=== PATIENT | male | born 1970 | race Caucasian/White ===

== ENCOUNTER 2019-10-24 08:27 | Inpatient (IN) ==
[2019-10-24] MEDS ORDERED: *HR* FentaNYL (PF) 100 MCG/2 ML VIAL ONE ×2 (08:49→11:33)
[2019-10-24] MEDS ORDERED: *HR* Midazolam HCl 2 MG/2 ML VIAL ONE (08:49)
[2019-10-24] MEDS ORDERED: *HR* Propofol 200 MG/20 ML VIAL IVP ONE (08:50)
[2019-10-24] MEDS ORDERED: Dexamethasone 4 MG/ML VIAL ONE (08:50)
[2019-10-24] MEDS ORDERED: Ondansetron 4 MG/2 ML VIAL ONE (08:50)
[2019-10-24] MEDS ORDERED: Lidocaine HCL 4 ML Topical Solution (Laryng-O-Jet Kit Sterile Pak) TP ONE (08:50)
[2019-10-24] MEDS ORDERED: Lidocaine -MPF 2% 2 ML VIAL ONE (08:50)
[2019-10-24] MEDS ORDERED: *HR* Rocuronium Bromide 50 MG/5 ML VIAL ONE (08:50)
[2019-10-24] MEDS ORDERED: CeFAZolin Syr 2,000MG/20 ML 2,000 MG/20 ML SYRINGE IVPB ONE (08:59)
[2019-10-24] MEDS ORDERED: Ringers Solution, Lactated 1,000 ML IVC SCH (09:00)
[2019-10-24] MEDS ORDERED: *HR* OxyCODONE Immed Rel 5 MG TABLET PO PRN (09:10)
[2019-10-24] MEDS ORDERED: Ketorolac 30 MG/ML VIAL IVP ONE (09:10)
[2019-10-24] MEDS ORDERED: Ondansetron 4 MG/2 ML VIAL IVP ONE (09:10)
[2019-10-24] MEDS ORDERED: Acetaminophen IV 1,000 MG/100 ML INFUS..BTL ONE (09:59)
[2019-10-24] MEDS ORDERED: Ketorolac 30 MG/ML VIAL ONE (12:30)
[2019-10-24] MEDS: *HR* HYDROmorphone PF 0.5 MG/0.5 ML SYRINGE IVP PRN ×4 (13:09→13:41)
[2019-10-24] MEDS ORDERED: Naloxone 0.4 MG/ML INJ IVP PRN (14:38)
[2019-10-24] MEDS: Gabapentin 300 MG CAPSULE PO SCH ×2 (15:22→20:38)
[2019-10-24] MEDS: *HR* HYDROcodone/Acet 5/325 mg TABLET PO PRN ×2 (15:22→20:38)
[2019-10-24] MEDS: *HR* Heparin 5,000 UNIT/ML VIAL SQ SCH ×2 (15:22→20:40)
[2019-10-24] MEDS: 0.9 % Sodium Chloride 1,000 ML IVC SCH (15:23)
[2019-10-24] MEDS: Ipratropium/Albuterol Neb 3 ML IH SCH ×3 (15:42→23:43)
[2019-10-24] MEDS: Ketorolac 15 MG/ML VIAL IVP SCH (17:30)
[2019-10-24] MEDS: Sennosides/Docusate Sodium TABLET PO SCH (20:39)
[2019-10-24] MEDS: Famotidine 20 MG TABLET PO SCH (20:39)
[2019-10-24] MEDS: *HR* LORazepam 2 MG/ML VIAL IVP PRN (22:07)
[2019-10-24] MEDS: *HR* OxyCODONE/APAP 7.5/325 TABLET PO PRN (22:08)
[2019-10-25] MEDS: Ketorolac 15 MG/ML VIAL IVP SCH ×4 (00:59→18:01)
[2019-10-25] MEDS: Ipratropium/Albuterol Neb 3 ML IH SCH ×6 (03:18→23:51)
[2019-10-25] MEDS: 0.9 % Sodium Chloride 1,000 ML IVC SCH (03:49)
[2019-10-25] MEDS: *HR* Heparin 5,000 UNIT/ML VIAL SQ SCH ×3 (05:59→21:23)
[2019-10-25] MEDS: *HR* LORazepam 2 MG/ML VIAL IVP PRN ×3 (06:21→21:23)
[2019-10-25] MEDS: *HR* OxyCODONE/APAP 7.5/325 TABLET PO PRN ×3 (06:22→18:00)
[2019-10-25 07:06] LABS: Hematocrit 42.8 % (37.5-50.1); Hemoglobin 14.5 g/dL (12.9-16.9); Mean Corpuscular HGB Conc 33.9 g/dL (31.6-35.5); Mean Corpuscular Hemoglobin 31.2 pg (28.0-33.3); Mean Platelet Volume 9.6 fL (9.4-12.4); Platelet Count 241 K/mcL (140-400); Red Blood Count 4.65 M/mcL (4.19-5.50); Red Cell Distribution Width 14.3 % (11.5-14.5); White Blood Count 11.6 K/mcL (4.3-11.1)
[2019-10-25 07:24] LABS: % Iron Saturation 7 % (20-55); BUN/Creatinine Ratio 18 (6-26); Blood Urea Nitrogen 18 mg/dL (6-20); Calcium 8.3 mg/dL (8.6-10.3); Carbon Dioxide 22 mEq/L (23-29); Chloride 104 mEq/L (98-107); Glucose 138 mg/dL (70-105); Iron 24 mcg/dL (65-175); Osmolality,Calculated 276 (280-300); Potassium 3.9 mEq/L (3.5-5.1); Sodium 131 mEq/L (136-145); Transferrin 255 mg/dL (203-362); eGFR For African Americans > 60 (> 60); eGFR For Non-African Americans > 60 (> 60)
[2019-10-25] MEDS: Sennosides/Docusate Sodium TABLET PO SCH ×2 (08:08→19:38)
[2019-10-25] MEDS: Famotidine 20 MG TABLET PO SCH ×2 (08:08→19:38)
[2019-10-25] MEDS: Gabapentin 300 MG CAPSULE PO SCH ×3 (08:08→19:38)
[2019-10-25] MEDS ORDERED: Iron Sucrose Complex 400 MG in 0.9 % Sodium Chloride 250 ML IVPB ONE (09:24)
[2019-10-26] MEDS: Ketorolac 15 MG/ML VIAL IVP SCH ×5 (01:57→23:44)
[2019-10-26] MEDS: *HR* OxyCODONE/APAP 7.5/325 TABLET PO PRN ×2 (02:03→20:17)
[2019-10-26] MEDS: Ipratropium/Albuterol Neb 3 ML IH SCH ×6 (03:38→23:48)
[2019-10-26] MEDS: *HR* Heparin 5,000 UNIT/ML VIAL SQ SCH ×3 (06:05→20:17)
[2019-10-26] MEDS: *HR* LORazepam 2 MG/ML VIAL IVP PRN ×2 (06:08→12:19)
[2019-10-26] MEDS: Gabapentin 300 MG CAPSULE PO SCH ×3 (08:06→20:17)
[2019-10-26] MEDS: Sennosides/Docusate Sodium TABLET PO SCH ×2 (08:06→20:10)
[2019-10-26] MEDS: Famotidine 20 MG TABLET PO SCH ×2 (08:06→20:18)
[2019-10-27] MEDS: Ipratropium/Albuterol Neb 3 ML IH SCH ×6 (03:32→21:17)
[2019-10-27] MEDS: Ketorolac 15 MG/ML VIAL IVP SCH ×4 (05:00→23:07)
[2019-10-27] MEDS: *HR* Heparin 5,000 UNIT/ML VIAL SQ SCH (05:01)
[2019-10-27] MEDS: Gabapentin 300 MG CAPSULE PO SCH ×3 (07:58→19:46)
[2019-10-27] MEDS: Sennosides/Docusate Sodium TABLET PO SCH ×2 (07:58→19:46)
[2019-10-27] MEDS: Famotidine 20 MG TABLET PO SCH ×2 (07:58→19:45)
[2019-10-27] MEDS: *HR* OxyCODONE/APAP 7.5/325 TABLET PO PRN ×4 (09:17→23:48)
[2019-10-27] MEDS ORDERED: Gabapentin 300 MG CAPSULE PO SCH (09:30)
[2019-10-27 09:50] LABS: Hematocrit 37.2 % (37.5-50.1); Mean Corpuscular HGB Conc 34.9 g/dL (31.6-35.5); Mean Corpuscular Hemoglobin 32.2 pg (28.0-33.3); Mean Corpuscular Volume 92.1 fL (83.0-100.0); Mean Platelet Volume 9.4 fL (9.4-12.4); Platelet Count 208 K/mcL (140-400); Red Blood Count 4.04 M/mcL (4.19-5.50); Red Cell Distribution Width 14.1 % (11.5-14.5); White Blood Count 7.2 K/mcL (4.3-11.1)
[2019-10-27 10:11] LABS: % Iron Saturation 14 % (20-55); BUN/Creatinine Ratio 15 (6-26); Blood Urea Nitrogen 14 mg/dL (6-20); Calcium 8.4 mg/dL (8.6-10.3); Carbon Dioxide 23 mEq/L (23-29); Chloride 104 mEq/L (98-107); Glucose 180 mg/dL (70-105); Iron 43 mcg/dL (65-175); Magnesium 1.9 mg/dL (1.6-2.6); Osmolality,Calculated 283 (280-300); Sodium 134 mEq/L (136-145); Transferrin 212 mg/dL (203-362); eGFR For African Americans > 60 (> 60); eGFR For Non-African Americans > 60 (> 60)
[2019-10-28] MEDS: *HR* OxyCODONE/APAP 7.5/325 TABLET PO PRN ×4 (03:47→20:25)
[2019-10-28] MEDS: *HR* LORazepam 2 MG/ML VIAL IVP PRN ×2 (03:49→23:14)
[2019-10-28] MEDS: Ipratropium/Albuterol Neb 3 ML IH SCH ×4 (04:00→22:19)
[2019-10-28] MEDS: Ketorolac 15 MG/ML VIAL IVP SCH ×4 (06:24→23:14)
[2019-10-28] MEDS: Gabapentin 300 MG CAPSULE PO SCH ×3 (07:57→20:25)
[2019-10-28] MEDS: Sennosides/Docusate Sodium TABLET PO SCH ×2 (07:58→20:25)
[2019-10-28] MEDS: Famotidine 20 MG TABLET PO SCH ×2 (07:58→20:25)
[2019-10-29] MEDS: *HR* OxyCODONE/APAP 7.5/325 TABLET PO PRN ×5 (00:37→20:26)
[2019-10-29] MEDS: Ipratropium/Albuterol Neb 3 ML IH SCH ×4 (03:45→22:32)
[2019-10-29] MEDS: Ketorolac 15 MG/ML VIAL IVP SCH ×3 (04:43→17:22)
[2019-10-29] MEDS: Famotidine 20 MG TABLET PO SCH ×2 (07:19→20:27)
[2019-10-29] MEDS: Sennosides/Docusate Sodium TABLET PO SCH ×2 (07:19→20:26)
[2019-10-29] MEDS: Gabapentin 300 MG CAPSULE PO SCH ×3 (07:19→20:26)
[2019-10-29] MEDS: *HR* LORazepam 2 MG/ML VIAL IVP PRN (22:07)
[2019-10-30] MEDS: Ipratropium/Albuterol Neb 3 ML IH SCH ×4 (04:25→21:29)
[2019-10-30] MEDS: *HR* OxyCODONE/APAP 7.5/325 TABLET PO PRN ×2 (04:41→08:40)
[2019-10-30] MEDS: Famotidine 20 MG TABLET PO SCH ×2 (07:55→20:03)
[2019-10-30] MEDS: Gabapentin 300 MG CAPSULE PO SCH (07:55)
[2019-10-30] MEDS: Sennosides/Docusate Sodium TABLET PO SCH ×2 (07:56→20:03)
[2019-10-30] MEDS: *HR* OxyCODONE/APAP 10/325 TABLET PO PRN ×2 (13:21→20:03)
[2019-10-30] MEDS: Gabapentin 400 MG CAPSULE PO SCH ×2 (14:51→20:03)
[2019-10-31] MEDS: *HR* LORazepam 2 MG/ML VIAL IVP PRN (00:06)
[2019-10-31] MEDS: *HR* OxyCODONE/APAP 10/325 TABLET PO PRN ×3 (00:06→09:20)
[2019-10-31] MEDS: Ipratropium/Albuterol Neb 3 ML IH SCH ×2 (03:06→09:53)
[2019-10-31 06:26] LABS: Hematocrit 38.3 % (37.5-50.1); Hemoglobin 12.9 g/dL (12.9-16.9); Mean Corpuscular HGB Conc 33.7 g/dL (31.6-35.5); Mean Corpuscular Hemoglobin 31.1 pg (28.0-33.3); Mean Corpuscular Volume 92.3 fL (83.0-100.0); Mean Platelet Volume 9.2 fL (9.4-12.4); Platelet Count 256 K/mcL (140-400); Red Blood Count 4.15 M/mcL (4.19-5.50); Red Cell Distribution Width 14.1 % (11.5-14.5); White Blood Count 6.6 K/mcL (4.3-11.1)
[2019-10-31 06:48] LABS: BUN/Creatinine Ratio 22 (6-26); Blood Urea Nitrogen 22 mg/dL (6-20); Calcium 8.4 mg/dL (8.6-10.3); Carbon Dioxide 23 mEq/L (23-29); Chloride 103 mEq/L (98-107); Glucose 105 mg/dL (70-105); Magnesium 2.2 mg/dL (1.6-2.6); Osmolality,Calculated 276 (280-300); Sodium 131 mEq/L (136-145); eGFR For African Americans > 60 (> 60); eGFR For Non-African Americans > 60 (> 60)
[2019-10-31] MEDS: Gabapentin 400 MG CAPSULE PO SCH (07:23)
[2019-10-31] MEDS: Famotidine 20 MG TABLET PO SCH (07:23)
[2019-10-31] MEDS: Sennosides/Docusate Sodium TABLET PO SCH (07:23)
[2019-10-31 10:54] VITALS: BP 150/82
== END 2019-10-31 10:38 | disposition home or self-care (01) | DRG 165 ==
LOC: SAMDAY 08:27 → 3NENU 14:09
PROVIDERS: ADMIT Thoracic Surgery (Cardiothoracic Vascular Surgery); ATTEND Thoracic Surgery (Cardiothoracic Vascular Surgery)